=== PATIENT | male | born 1945 | race Caucasian/White ===

== ENCOUNTER 2017-02-19 06:20 | Day surgery (SDC) | payer MEDICARE, BC, OTHER ==
[~2017-02-19 06:20] MED LIST: ALLOPURINOL300 M1 PO; ALTACE5 M1; ALTACE5 MG; AMILORIDE HCL5 M1 PO; AMOXICILLIN500 MG; ASPIRIN81 MG PO; BABY ASPIRIN81 MG; BACTRIM1 TAB PO; BYSTOLIC2.5 MG PO; CLONAZEPAM0.5 MG PO; COLCRYS0.6 MG PO; DEMADEX20 M1 PO; DOXYCYCLINE HY100 MG; ELIQUIS2.5 M1 PO; ENULOSE10 GM/151 PO; FISH OIL 1,0001 CA1; FLOMAX0.4 M1 PO; FLONASE16 GM; FUROSEMIDE40 MG PO; K-LOR20 MEQ/PKT PO; KLONOPIN0.5 MG; KLOR-CON M2020 ME1 PO; KLOR-CON M2020 MEQ PO; LASIX20 MG; METOLAZONE2.5 M1 PO; METOLAZONE5 MG PO; MIRAPEX PO; MIRAPEX1.5 MG; MULTIVITAMIN1 TAB PO; NIASPAN500 MG PO; NITROGLYCERIN0.4 M2 SL; OMEPRAZOLE40 M2 PO; POTASSIUM CHLO10 MEQ; PRENATAL VITAMI1 TAB PO; PROTONIX40 M1 PO; PROTONIX40 MG; QUALAQUIN; RELPAX40 MG; SENNA8.6 M2 PO; SEPTRA DS TABLE1 TAB; TOPROL XL25 M1 PO; TOPROL XL25 MG; VASCULERA630 MG PO; VITAMIN C; VITAMIN D2000 UNI1 PO; VYTORIN 10/10 T1 TAB; VYTORIN 10/20 T1 TAB; ZYLOPRIM100 M1 PO; [UNRECOGNIZED DRUG - OTHER]
[2017-02-19 08:33] LABS: PROTHROMBIN TIME 11.6 SECONDS (9.0-13.6)
[2017-02-20] MEDS ORDERED: HYDROCODON-ACE1 EA16 PO (08:43)
[2017-02-20] MEDS ORDERED: COLACE100 M1 PO (08:44)
[2017-05-27] MEDS ORDERED: ISOSORBIDE MONO30 M4 PO (12:44)
[2017-05-27] MEDS ORDERED: LINZESS290 MC1 PO (12:44)
[2017-05-27] MEDS ORDERED: K-TAB ER20 ME1 PO (12:46)
[2017-05-27] MEDS ORDERED: DEMADEX20 M1 PO (12:47)
[2017-05-27] MEDS ORDERED: COLCRYS0.6 M1 PO (12:48)
[2017-05-27] MEDS ORDERED: FLONASE ALLERG9.9 ML (12:49)
[2017-06-03] MEDS ORDERED: ALLEGRA ALLERG180 M1 PO (09:14)
[2017-07-08] MEDS ORDERED: CIPRO500 M2 PO (09:59)
[2017-07-08] MEDS ORDERED: RANEXA500 M1 PO (09:59)
[2017-07-08] MEDS ORDERED: METRONIDAZOLE500 M3 PO (10:00)
[2017-07-08] MEDS ORDERED: HYOSCYAMINE0.375 M3 PO (10:02)
== END 2017-02-20 10:20 ==
LOC: SRG 06:20 → SHSB 06:21 → ORW 08:47 → PACU 10:02 → SHSB 10:55 → CAR1 17:31
PROVIDERS: Surgery
PROC: 0WUF4JZ Supplement Abdominal Wall with Synthetic Substitute, Percutaneous Endoscopic Approach (ICD-10-PCS; principal; 2017-02-19)
DX: K43.0 Incisional hernia with obstruction, without gangrene (principal); K66.0 Peritoneal adhesions (postprocedural) (postinfection); I25.10 Atherosclerotic heart disease of native coronary artery without angina pectoris; I13.0 Hypertensive heart and chronic kidney disease with heart failure and stage 1 through stage 4 chronic kidney disease, or unspecified chronic kidney disease; I50.30 Unspecified diastolic (congestive) heart failure; N18.9 Chronic kidney disease, unspecified; I73.9 Peripheral vascular disease, unspecified; I87.2 Venous insufficiency (chronic) (peripheral); M19.90 Unspecified osteoarthritis, unspecified site; K21.9 Gastro-esophageal reflux disease without esophagitis; Z91.041 Radiographic dye allergy status; Z88.2 Allergy status to sulfonamides; Z88.8 Allergy status to other drugs, medicaments and biological substances; Z95.5 Presence of coronary angioplasty implant and graft; Z79.899 Other long term (current) drug therapy; Z79.01 Long term (current) use of anticoagulants; Z98.890 Other specified postprocedural states
CPT/HCPCS: C1781; J0690; J3010